=== PATIENT | male | born 1955 | race Caucasian/White ===

== ENCOUNTER → 2016-06-01 | Outpatient (CLI) | payer OTHER ==
[~2016-06-01] MED LIST: IOPAMIDOL (ISOVUE-300) 50 ML VIAL IV ONE
--- NOTE | 2016-06-01 17:10 | CT ---
CT Scan of the Abdomen and Pelvis (With Contrast) 1623 hours History: Lower abdominal pain. Technique: Axial computed tomographic images of the abdomen and pelvis were obtained, with the uneve ntful intravenous administration of 90 mL Isovue-300 contrast. No oral or rectal contrast, which conway its the study. Dose reduction techniques were utilized. CT Abdomen Findings Lung bases: Normal. Liver: Normal. Biliary system: No obstruction. Spleen: Normal. Pancreas: Normal. Adrenals: Normal. Kidneys: No obstruction or solid masses. Abdominal Aorta: No aneurysm. No bowel obstruction, ascites, or significant retroperitoneal lymphadenopathy. CT Pelvis Findings: Inflammatory thickening of the mid sigmoid colon extending for 7 cm, with temo lonic inflammatory changes, and a small amount of free fluid consistent with acute diverticulitis. N o drainable abscess or pneumoperitoneum. The appendix appears normal, without inflammatory changes. Impressions 1. Acute sigmoid diverticulitis, without bowel obstruction, drainable abscess, or pneumoperitoneum. 2. No CT evidence of appendicitis, abscess, or bowel obstruction. Findings and recommendations discussed with Emergency Department physician, Dr. Eladia Wall, at 16 40 hours on June 01, 2016. Final report concurs with initial preliminary interpretation.
== END ==
LOC: FIMAGING 14:29
PROVIDERS: ATTEND Emergency Medicine
DX: K57.92 Diverticulitis of intestine, part unspecified, without perforation or abscess without bleeding (principal)
CPT/HCPCS: Q9967

== ENCOUNTER → 2017-10-11 | Outpatient (CLI) | payer OTHER | LOC: BMCIMAGING 12:18 | PROVIDERS: ATTEND Orthopaedic Surgery Hand Surgery | DX: M25.532 Pain in left wrist (principal) ==

== ENCOUNTER 2018-05-16 04:10 | Observation (INO) | payer OTHER ==
[2018-05-16] MEDS ORDERED: ONDANSETRON 4 MG/2 ML VIAL ONE (04:21)
[2018-05-16] MEDS ORDERED: NS 1,000 ML IV ONE ×2 (04:22→04:38)
[2018-05-16] MEDS ORDERED: ONDANSETRON 4 MG/2 ML VIAL IVP ONE (04:22)
--- NOTE | 2018-05-16 04:23 | EDPHY ---
H & P Stated Complaint: vomiting and diarrhea with lower abd pain since 0100 Time Seen by Provider: 05/16/18 04:23 HPI/ROS: HPI CHIEF COMPLAINT: Abdominal pain, nausea, vomiting, diarrhea recently diagnosed with diverticulitis HISTORY OF PRESENT ILLNESS: Patient very pleasant 62-year-old male, he has a history of diverticulitis this would be his 3rd episode of this, he was recently treated with Cipro and Flagyl for the past 11 days and completed this course. He was then subsequently followed up with his primary care doctor last and placed on Augmentin as he continues to have pain. He now presents emergency room nausea vomiting and diarrhea and lower abdominal pain. He complains of left lower quadrant abdominal pain as well as right lower quadrant. Denies fever, denies chest pain, denies shortness of breath. No bloody stools, no hematemesis. Main complaint nausea, vomiting, diarrhea and lower abdominal pain. Past Medical History: Significant history for diverticulitis Past Surgical History: No recent surgical history Social History: Denies drugs alcohol tobacco. Family History: Noncontributory ROS REVIEW OF SYSTEMS: 10 Systems were reviewed and negative with the exception of the elements mentioned in the history of present illness. Exam Constitutional nontoxic triage nursing summary reviewed, vital signs reviewed , awake/alert. Vital signs stable Eyes normal conjunctivae and sclera, EOMI, PERRLA. HENT normal inspection, atraumatic, moist mucus membranes, no epistaxis, neck supple/ no meningismus, no raccoon eyes. Respiratory clear to auscultation bilaterally, normal breath sounds, no respiratory distress, no wheezing. Cardiovascular rate normal, regular rhythm, no murmur, no edema, distal pulses normal. Gastrointestinal mild tender palpation left lower quadrant and right lower quadrant, no peritoneal signs,, no rebound, no guarding, normal bowel sounds, no distension, no pulsatile mass. Genitourinary no CVA tenderness. Musculoskeletal no midline vertebral tenderness, full range of motion, no calf swelling, no tenderness of extremities, no meningismus, good pulses, neurovascularly intact. Skin pink, warm, & dry, no rash, skin atraumatic. Neurologic awake, alert and oriented x 3, AAOx3, moves all 4 extremities equally, motor intact, sensory intact, CN II-XII intact, normal cerebellar, normal vision, normal speech. Psychiatric normal mood/affect. Heme/Lymph/Immune no lymphadenopathy. Differential Diagnosis: Differential diagnosis includes but is not limited to and in no particular order: Bowel obstruction, appendicitis, gallbladder disease, diverticulitis, colitis, enteritis, perforated viscus, gastritis, GERD , esophagitis, urinary tract infection, pyelonephritis, kidney stones Medical Decision Making: Plan for this patient IV establishment IV fluid bolus , IV Zofran for nausea, basic blood work lactic acid, CT scan abdomen pelvis with IV contrast rule out acute diverticulitis or diverticulitis with perforation or abscess or complication of diverticulitis. Re-evaluation: CT scan abdomen pelvis with IV contrast no evidence of abscess or free air. Extensive diverticulosis in the sigmoid colon possible minimal stranding. Given the patient's high white count [id number], abdominal pain on exam, and recent course of antibiotics plan will be for hospital admission today for observation IV fluids and IV Invanz. If patient continues to do well with no significant pain no fever, no vomiting, white count decrease I believe he can be going home. Plan for admission for today for fluids, antibiotics and re-evaluation. No perforation or abscess was seen on the CT scan. Source: Patient - Personal History Current Tetanus/Diphtheria Vaccine: Yes Current Tetanus Diphtheria and Acellular Pertussis (TDAP): Yes - Medical/Surgical History Hx Asthma: No Hx Chronic Respiratory Disease: No Hx Diabetes: No Hx Cardiac Disease: No Hx Renal Disease: No Hx Cirrhosis: No Hx Alcoholism: No Hx HIV/AIDS: No Hx Splenectomy or Spleen Trauma: No Other PMH: Diverticulosis - Social History Smoking Status: Never smoked Constitutional: Initial Vital Signs Temperature (C) 36.3 C 05/16/18 04:11 Heart Rate 82 05/16/18 04:11 Respiratory Rate 16 05/16/18 04:11 Blood Pressure 130/80 H 05/16/18 04:11 O2 Sat (%) 96 05/16/18 04:11 O2 Delivery Mode Room Air Allergies/Adverse Reactions: No Known Allergies Allergy (Verified 05/16/18 04:17) Home Medications: Medication Instructions Recorded Amoxicillin/Clavulanate Pot 875 mg PO BID 05/16/18 [Augmentin 875 MG TAB (*)] Aspirin [Aspirin 81mg (*)] 81 mg PO DAILY 05/16/18 Herbals/Supplements -Info Only 1 ea PO DAILY 05/16/18 Losartan/Hctz 50/12.5 [Hyzaar 1 tab PO DAILY 05/16/18 50/12.5MG (*)] Metoprolol Tartrate [Lopressor 25 25 mg PO BID 05/16/18 mg (*)] Ondansetron Odt [Zofran Odt 4 mg 4 mg PO Q4-6PRN PRN 05/16/18 (*)] Vitamin B Complex [Vitamin B 2 each PO DAILY 05/16/18 Complex (OTC)] buPROPion XL [Wellbutrin Xl] 300 mg PO DAILY 05/16/18 Medical Decision Making - Diagnostics Imaging Results: Imaging Impressions Abdomen CT 05/16/18 04:27 Impression: 1. Diverticulosis coli especially in the sigmoid colon without evidence of diverticulitis. 2. No CT evidence of appendicitis, abscess or bowel obstruction. 3. 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 Findings and recommendations discussed with Emergency Department physician, Reynold Silva MD at 05:15 hour, 05/16/2018. Final report concurs with initial preliminary interpretation. - Data Points Laboratory Results: Laboratory Results 05/16/18 04:30 05/16/18 04:30 Medications Given: Dextrose/Sodium Chloride (D5w 1/2 Ns) 1,000 mls @ 100 mls/hr IV CONT ERNESTINA Stop: 11/12/18 06:14 Last Admin: 05/16/18 18:48 Dose: 1,000 mls Metoprolol Tartrate (Lopressor) 25 mg PO BID ERNESTINA Stop: 11/12/18 20:59 Last Admin: 05/16/18 20:09 Dose: 25 mg Ondansetron HCl (Zofran) 4 mg IVP Q4HRS PRN PRN Reason: Nausea/Vomiting, Can't Take PO Stop: 11/12/18 05:26 Last Admin: 05/16/18 13:38 Dose: 4 mg Pantoprazole Sodium (Protonix) 40 mg IVP BID ERNESTINA Stop: 11/12/18 14:59 Last Admin: 05/16/18 20:09 Dose: 40 mg Promethazine HCl (Phenergan) 12.5 mg IVP Q6HRS PRN PRN Reason: Nausea/Vomiting, Can't Take PO Stop: 11/12/18 13:52 Last Admin: 05/16/18 18:44 Dose: 12.5 mg Discontinued Medications Sodium Chloride (Ns) 1,000 mls @ 0 mls/hr IV EDNOW ONE; Wide Open PRN Reason: Protocol Stop: 05/16/18 04:23 Last Admin: 05/16/18 04:30 Dose: 1,000 mls Sodium Chloride (Ns) 1,000 mls @ 0 mls/hr IV ONCE ONE PRN Reason: Wide Open Stop: 05/16/18 04:39 Last Admin: 05/16/18 04:41 Dose: 1,000 mls Ertapenem 1 gm/ Sodium (Chloride) 100 mls @ 200 mls/hr IV EDNOW ONE PRN Reason: Protocol Stop: 05/16/18 05:46 Last Admin: 05/16/18 05:45 Dose: 100 mls Ondansetron HCl (Zofran) 4 mg IVP EDNOW ONE Stop: 05/16/18 04:23 Last Admin: 05/16/18 04:30 Dose: 4 mg Point of Care Test Results: Chemistry 05/16/18 04:37 POC Sodium 142 mEq/L mEq/L (135-145) POC Potassium 4.0 mEq/L mEq/L (3.3-5.0) POC Chloride 98 mEq/L mEq/L (97-110) POC BUN 19 mg/dL mg/dL (7-23) POC Creatinine 1.4 mg/dL H mg/dL (0.7-1.3) POC Glucose 154 mg/dL H mg/dL (70-100) ISTAT H&H 05/16/18 04:37 POC Hgb 19.7 gm/dL H gm/dL (13.7-17.5) POC Hct 58 % H % (40-51) Departure - Departure Disposition: [facility] Inpatient Acute Clinical Impression: Diverticulitis Abdominal pain Qualifiers: Abdominal location: generalized Qualified Code(s): R10.84 - Generalized abdominal pain Condition: Fair
[2018-05-16] MEDS ORDERED: IOPAMIDOL (ISOVUE-300) 100 ML BTL ONE (04:39)
[2018-05-16 04:44] LABS: PLATELET COUNT 651 10^3/uL (150-400)
[2018-05-16 04:52] LABS: INR 1.03 (0.83-1.16); PROTIME(PATIENT) 13.7 SEC (12.0-15.0)
[2018-05-16] MEDS ORDERED: ERTAPENEM 1 GM in NS 100 ML IV ONE (05:17)
[2018-05-16] MEDS ORDERED: ONDANSETRON DISINTEGRATING 4 MG TAB PO PRN (05:27)
[2018-05-16] MEDS ORDERED: oxyCODONE IR 5 MG TAB PO PRN (05:27)
[2018-05-16] MEDS ORDERED: ACETAMINOPHEN 325 MG TAB PO PRN (05:27)
--- NOTE | 2018-05-16 06:05 | PDGENHP ---
History and Physical - Chief Complaint Abdominal pain - History of Present Illness 62 yo M w/ hx of HTN and recurrent diverticulitis presents with abdominal pain, nausea, and vomiting. The patient has been dealing with a bout of diverticulitis for the last 10 days. He was prescribed a course of Cipro/Flagyl by his PCP with moderate improvement. His PCP did not feel he was fully recovered, however, so he was started on Augmentin yesterday. Later the same day he began to experience nausea and vomiting. It is for this reason he came in to the ED for evaluation. In the ED his CT scan is reassuring with minimal inflammation and no complications of diverticulitis. His WBC is elevated at 24k and he has a mildly elevated serum creatinine. He is being admitted for observation. Case discussed with ED physician Dr. Madsen; records reviewed and summarized above. History Information - Allergies/Home Medication List Allergies/Adverse Reactions: No Known Allergies Allergy (Verified 05/16/18 04:17) Home Medications: Amoxicillin/Clavulanate Pot 05/16/18 [Last Taken Unknown] Aspirin 81mg (*) 05/16/18 [Last Taken Unknown] Bupropion HCl 05/16/18 [Last Taken Unknown] Coenzyme Q-10 05/16/18 [Last Taken Unknown] Losartan-Hctz 100-12.5 mg Tab 05/16/18 [Last Taken Unknown] Metoprolol ER-Hctz 100-12.5 mg 05/16/18 [Last Taken Unknown] I have personally reviewed and updated: family history, medical history - Past Medical History hypertension - Surgical History Additional surgical history: Tendon release L wrist - Family History Positive for: cancer - Social History Smoking Status: Never smoked Review of Systems Review of Systems: ROS: 10pt was reviewed & negative except for what was stated in HPI & below Physical Exam Physical Exam: Temp Pulse Resp BP Pulse Ox 36.3 C 82 16 130/80 H 96 05/16/18 04:11 05/16/18 04:11 05/16/18 04:11 05/16/18 04:11 05/16/18 04:11 Constitutional: obese, uncomfortable Eyes: PERRL, EOMI Ears, Nose, Mouth, Throat: moist mucous membranes, no oral mucosal ulcers Cardiovascular: regular rate and rhythym, no murmur, rub, or gallop Respiratory: no respiratory distress, clear to auscultation Gastrointestinal: tenderness (LLQ, RLQ), No guarding, No rebound, No distension Skin: warm, normal color Musculoskeletal: full muscle strength, no muscle tenderness Neurologic: AAOx3, CN II-XII Intact Psychiatric: interacting appropriately, not anxious Lab Data & Imaging Review 05/16/18 04:30 05/16/18 04:30 WBC 24.42 10^3/uL (3.80-9.50) H 05/16/18 04:30 RBC 6.13 10^6/uL (4.40-6.38) 05/16/18 04:30 Hgb 18.9 g/dL (13.7-17.5) H 05/16/18 04:30 POC Hgb 19.7 gm/dL (13.7-17.5) H 05/16/18 04:37 Hct 53.3 % (40.0-51.0) H 05/16/18 04:30 POC Hct 58 % (40-51) H 05/16/18 04:37 MCV 86.9 fL (81.5-99.8) 05/16/18 04:30 MCH 30.8 pg (27.9-34.1) 05/16/18 04:30 MCHC 35.5 g/dL (32.4-36.7) 05/16/18 04:30 RDW 16.5 % (11.5-15.2) H 05/16/18 04:30 Plt Count 651 10^3/uL (150-400) H 05/16/18 04:30 MPV 8.7 fL (8.7-11.7) 05/16/18 04:30 Neut % (Auto) 85.8 % (39.3-74.2) H 05/16/18 04:30 Lymph % (Auto) 5.1 % (15.0-45.0) L 05/16/18 04:30 [place] % (Auto) 7.7 % (4.5-13.0) 05/16/18 04:30 Eos % (Auto) 0.4 % (0.6-7.6) L 05/16/18 04:30 Baso % (Auto) 0.2 % (0.3-1.7) L 05/16/18 04:30 Nucleat RBC Rel Count 0.0 % (0.0-0.2) 05/16/18 04:30 Absolute Neuts (auto) 20.95 10^3/uL (1.70-6.50) H 05/16/18 04:30 Absolute Lymphs (auto) 1.25 10^3/uL (1.00-3.00) 05/16/18 04:30 Absolute Monos (auto) 1.88 10^3/uL (0.30-0.80) H 05/16/18 04:30 Absolute Eos (auto) 0.10 10^3/uL (0.03-0.40) 05/16/18 04:30 Absolute Basos (auto) 0.05 10^3/uL (0.02-0.10) 05/16/18 04:30 Absolute Nucleated RBC 0.00 10^3/uL (0-0.01) 05/16/18 04:30 Immature Gran % 0.8 % (0.0-1.1) 05/16/18 04:30 Immature Gran # 0.20 10^3/uL (0.00-0.10) H 05/16/18 04:30 RBC/WBC/PLT Morphology TNP 05/16/18 04:30 Platelet Estimate TNP 05/16/18 04:30 PT 13.7 SEC (12.0-15.0) 05/16/18 04:30 INR 1.03 (0.83-1.16) 05/16/18 04:30 APTT 31.8 SEC (23.0-38.0) 05/16/18 04:30 VBG Lactic Acid 1.5 mmol/L (0.7-2.1) 05/16/18 04:30 POC Sodium 142 mEq/L (135-145) 05/16/18 04:37 Sodium 138 mEq/L (135-145) 05/16/18 04:30 POC Potassium 4.0 mEq/L (3.3-5.0) 05/16/18 04:37 Potassium 4.8 mEq/L (3.5-5.2) 05/16/18 04:30 POC Chloride 98 mEq/L (97-110) 05/16/18 04:37 Chloride 100 mEq/L (97-110) 05/16/18 04:30 Carbon Dioxide 29 mEq/l (22-31) 05/16/18 04:30 Anion Gap 9 mEq/L (6-14) 05/16/18 04:30 POC BUN 19 mg/dL (7-23) 05/16/18 04:37 BUN 20 mg/dL (7-23) 05/16/18 04:30 Creatinine 1.3 mg/dL (0.7-1.3) 05/16/18 04:30 POC Creatinine 1.4 mg/dL (0.7-1.3) H 05/16/18 04:37 Estimated GFR 56 05/16/18 04:30 Glucose 154 mg/dL (70-100) H 05/16/18 04:30 POC Glucose 154 mg/dL (70-100) H 05/16/18 04:37 Calcium 9.7 mg/dL (8.5-10.4) 05/16/18 04:30 Total Bilirubin 0.5 mg/dL (0.1-1.4) 05/16/18 04:30 Conjugated Bilirubin 0.3 mg/dL (0.0-0.5) 05/16/18 04:30 Unconjugated Bilirubin 0.2 mg/dL (0.0-1.1) 05/16/18 04:30 AST 39 IU/L (17-59) 05/16/18 04:30 ALT 74 IU/L (21-72) H 05/16/18 04:30 Alkaline Phosphatase 79 IU/L (38-126) 05/16/18 04:30 Total Protein 7.2 g/dL (6.3-8.2) 05/16/18 04:30 Albumin 4.3 g/dL (3.5-5.0) 05/16/18 04:30 Lipase 70 IU/L (23-300) 05/16/18 04:30 Imaging Review: SIGMOID DIVERTICULOSIS NO DIVERTICULITIS NORMAL APPENDIX NO BOWEL OBSTRUCTION NO ABSCESS OR PNEUMOPERITONEUM DISCUSSED WITH DR GOODMAN AT 0515 Assessment & Plan Assessment: 62 yo M w/ hx HTN presents with diverticulitis. Plan: 1. Diverticulitis - This appears mostly resolved on CT scan with no complication noted (personally reviewed/interpreted). However, he continues to have elevated WBC, is tolerating little PO, and appears dehydrated. He has been treated with Cipro/Flagyl x 10 days. - Will admit for observation - Invanz IV 1g q24h - NPO, mIVF - Oxycodone PRN 2. Nausea, vomiting - This developed on the evening prior to admission. It is unclear if this is a sign of worsening/new GI process or a reaction to starting Augmentin. - D/C Augmentin - Will check GI PCR - Anti-emetics PRN - mIVF 3. HTN - Continue home medications pending reconciliation 4. Leukocytosis - WBC 24k on admission; this could be reactive from vomiting; however, difficult to rule out ongoing infectious process. - Invanz as above - GI PCR ordered 5. Polycythemia - Possibly due to dehydration; IVF and repeat CBC. Diet - NPO, mIVF Code - Full Ppx - SCDs Dispo - Admit under observation status
[2018-05-16] MEDS: D5W 1/2 NS 1,000 ML IV SCH ×2 (08:45→18:48)
--- NOTE | 2018-05-16 09:40 | ASMTCMCOM ---
CM Note CM Note Notes: Chart reviewed for discharge planning purposes. 71 year old male admitted via ED after course of antibiotics to treat diverticulitis. He comes in with pain, nausea and vomiting. No current needs identified. CM available should needs arise. Plan: Likely to discharge home independent when medically cleared for discharge. Date Signed: 05/16/2018 09:39 AM Electronically Signed By:Maria Del Carmen Barr RN
[2018-05-16] MEDS: ONDANSETRON 4 MG/2 ML VIAL IVP PRN ×2 (09:48→13:38)
[2018-05-16] MEDS ORDERED: PROMETHAZINE HCL 25 MG/ML INJ IVP PRN (13:53)
--- NOTE | 2018-05-16 14:59 | HOSPPROG ---
Hospitalist Progress Note Assessment/Plan: 62 yo M w/ hx HTN presents with diverticulitis. First encounter, chart reviewed. Plan: 1. Diverticulitis - This appears mostly resolved on CT scan with no complication noted - However, he continues to have elevated WBC, is tolerating little PO, and appears dehydrated. - He has been treated with Cipro/Flagyl x 10 days. and 1 dose Augmentin - will give Invanz IV 1g q24h -3 episode in 2 years, requiring multiple rounds of abx -consider surgery consult if not improving 2. Nausea, vomiting - This developed on the evening prior to admission. - etiol unclear - It is unclear if this is a sign of worsening/new GI process or a reaction to starting Augmentin. - GI PCR negative - Anti-emetics PRN - mIVF 3. HTN - stable -follow -hold home meds 4. Leukocytosis - WBC 24k on admission; -pt baseline wbc mildly elevated, chronic -follow efrain Mercado -this could be reactive from vomiting; -difficult to rule out ongoing infectious process. - Invanz as above 5. Polycythemia - Possibly due to dehydration; - IVF and repeat CBC. 6. Reflux -add protonix -order EKG Diet - regular Code - Full Ppx - SCDs Dispo - Admit under observation status spent >35 minutes bedside Subjective: Still nauseous. Pain 4/10. Thirsty. No new symptoms. Objective: Vital Signs Temp Pulse Resp BP Pulse Ox 36.5 C 113 H 15 120/77 92 05/16/18 11:33 05/16/18 11:33 05/16/18 11:33 05/16/18 11:33 05/16/18 11:33 Microbiology 05/16/18 07:05 Gastrointestinal Tract Panel (PCR) - Final Stool No Organism Detected By Pcr 05/15/18 05/16/18 05/17/18 05:59 05:59 05:59 Intake Total 2150 Balance 2150 PT 13.7 SEC (12.0-15.0) 05/16/18 04:30 INR 1.03 (0.83-1.16) 05/16/18 04:30 - Physical Exam Constitutional: appears nourished, obese, uncomfortable Eyes: PERRL, anicteric sclera, EOMI Ears, Nose, Mouth, Throat: moist mucous membranes, hearing normal, ears appear normal Cardiovascular: regular rate and rhythym, No JVD, No edema Respiratory: no respiratory distress, no rales or rhonchi, reduced air movement Gastrointestinal: tenderness, distension, No ascites, No guarding Skin: warm, normal color, No mottled Musculoskeletal: normal joint ROM, no joint effusions, generalized weakness Neurologic: AAOx3 Psychiatric: interacting appropriately, not anxious, not encephalopathic, thought process linear ICD10 Worksheet Patient Problems: Problems Problem Status Onset Abdominal pain Acute Diverticulitis Acute
[2018-05-16] MEDS: PANTOPRAZOLE SODIUM 40 MG VIAL IVP SCH ×2 (15:26→20:09)
[2018-05-16 16:30] LABS: CREATINE KINASE 52 IU/L (0-224)
[2018-05-16] MEDS: METOPROLOL TARTRATE 25 MG TAB PO SCH (20:09)
[2018-05-16] MEDS: ONDANSETRON DISINTEGRATING 4 MG TAB PO PRN (22:41)
[2018-05-17] MEDS: ONDANSETRON DISINTEGRATING 4 MG TAB PO PRN (04:58)
[2018-05-17] MEDS: D5W 1/2 NS 1,000 ML IV SCH (06:27)
[2018-05-17] MEDS ORDERED: VITAMIN B COMPLEX 1 EA CAP/TAB PO SCH (09:00)
[2018-05-17] MEDS ORDERED: buPROPion XL 150 MG TAB PO SCH (09:00)
[2018-05-17] MEDS ORDERED: ASPIRIN 81 MG CHEWABLE TAB PO SCH (09:00)
[2018-05-17] MEDS ORDERED: ERTAPENEM 1 GM in NS 100 ML IV SCH (09:00)
[2018-05-17] MEDS: PANTOPRAZOLE SODIUM 40 MG VIAL IVP SCH (09:14)
[2018-05-17] MEDS: METOPROLOL TARTRATE 25 MG TAB PO SCH (09:15)
--- NOTE | 2018-05-17 09:43 | CPEKG ---
Test Reason : OPEN Blood Pressure : / mmHG Vent. Rate : 116 BPM Atrial Rate : 116 BPM P-R Int : 161 ms QRS Dur : 081 ms QT Int : 290 ms P-R-T Axes : 068 050 002 degrees QTc Int : 403 ms Sinus tachycardia Low voltage, precordial leads Borderline T wave abnormalities Confirmed by Panfilo Cook ([id number]) on 05/17/2018 9:42:58 AM Referred By: Confirmed By:Panfilo Cook
[2018-05-17] MEDS ORDERED: AMOXICILLIN/CLAVULANATE POT 875/125 MG TAB PO SCH (10:15)
[2018-05-17 11:49] VITALS: BP 106/67
--- NOTE | 2018-05-17 13:41 | GDS ---
DISCHARGE DIAGNOSES: 1. Nausea and vomiting. 2. Viral gastroenteritis. 3. Recent diverticulitis. 4. History of hypertension. 5. Leukocytosis. 6. Polycythemia. 7. Acid reflux. CONSULTATIONS: Dr. Rodriguez. STUDIES AND PROCEDURES DONE: CT of the abdomen. PHYSICAL EXAM: GENERAL: The patient is alert. VITAL SIGNS: Afebrile at 36.9 , pulse 75, respiratory rate 16, blood pressure is 106/76. He is saturating 92 % on room air. I have seen and evaluated the patient on the day of discharge. HOSPITAL COURSE: 1. The patient is a 62-year-old male who presented to the emergency room with complaints of nausea and vomiting. He was evaluated and diagnosed with nausea and vomiting. This is secondary to likely a viral gastroenteritis. The patient has responded well to IV fluids and hydration. He is tolerating some oral intake. His GI PCR has been negative. He is responding to antiemetics and will continue these in the outpatient setting. 2. Recent diverticulitis. He will continue on Augmentin at the time of disposition as previously prescribed. He did receive IV Invanz during this hospitalization and has already completed a 10-day course of ciprofloxacin and Flagyl. He did receive a consultation from Dr. Rodriguez of surgery, who has recommended that he have surgical intervention when this acute inflammation resolves. This is his 3rd bout of diverticulitis in the last two years. 3. History of hypertension. His home antihypertensive has been discontinued at the time of disposition as he has low blood pressures. 4. Dehydration. This is improved with IV fluids. 5. Leukocytosis. The patient had an acute reactive leukocytosis at the time of admission. He does have signs of chronic leukocytosis for which he follows with Dr. Mercado outside the hospital. It does appear that he has returned to his baseline, and will continue to see Dr. Mercado. 6. Polycythemia is likely secondary to dehydration. This has resolved with IV fluid hydration. No further workup is indicated at this time. 7. Acid reflux. This is in the setting of viral gastroenteritis as well as diverticulitis. He is responding well to Protonix. DISPOSITION: The patient will be discharged home independently. FOLLOWUP: Will be with his primary care physician as well as Dr. Osbaldo Rodriguez. DISCHARGE MEDICATIONS: Please refer to EMR form. I have discontinued the patient's previously prescribed Hyzaar secondary to his low blood pressure and dehydration, and I have continued his previously prescribed home medications, including his recent prescription for Augmentin. He will follow with Dr. Loy Sylvester as well as Dr. Osbaldo Rodriguez outside the hospital. I have spent greater than 35 minutes in the care, coordination, and management of this patient's disposition. /[id number]/MODL MTDD
--- NOTE | 2018-05-17 19:33 | GCON ---
DATE OF CONSULTATION: 05/17/2018 Patient is a 62-year-old male who is admitted for recurrent diverticulitis. He has had 3 bouts of di verticulitis now which have all responded to antibiotics. However, this latest bout has been somewha t slow to respond. At the present time, a CT scan reveals no active complications or ongoing inflamm ation. He is having adequate GI function and starting to eat and is afebrile. His pain has resolved . I was consulted for advice on surgical options. ALLERGIES: None. MEDICATIONS: Augmentin, aspirin, bupropion, losartan, metoprolol, hydrochlorothiazide. PAST SURGICAL HISTORY: Includes a hernia repair and a tendon release of his wrist. PAST MEDICAL HISTORY: Includes hypertension. FAMILY HISTORY: Positive for malignancy. SOCIAL HISTORY: Reveals he is a non smoker. REVIEW OF SYSTEMS: Negative except as related to the HPI on a full 10-point review. Specifically, deandre monroe does not smoke. PHYSICAL EXAM: He is an alert, somewhat overweight 62-year-old male in no acute distress. HEAD and NECK: Reveals no icterus or adenopathy. CHEST: Clear. CARDIAC: Regular rhythm. ABDOMEN: Soft, not particularly tender. Active bowel sounds. No hernias. GENITALIA: Normal. EXTREMITIES: Full range of motion. Full pulses. NEUROLOGIC: Physiologic and symmetric with intact cranial nerves. IMPRESSION: Recurrent diverticulitis. He has now had 3 bouts of antibiotic treated diverticulitis. CT scan shows an extensive sigmoid diverticulosis with relatively large diverticula. Based on his a ge and his number of episodes, I would recommend him to consider sigmoid colectomy to avoid future co mplication. Risks and options have been fully discussed including the fact that he could just contin ue to treat episodes with antibiotics rather than surgery. He fully understands, accepts the risks a nd is thinking about his options. I plan to see him to follow up as an outpatient if he is intereste d in surgical intervention. /[id number]/MODL
== END 2018-05-17 15:12 | disposition home or self-care (01) ==
LOC: F3E 08:29
PROVIDERS: ADMIT Student in an Organized Health Care Education/Training Program; ATTEND Internal Medicine
DX: A08.4 Viral intestinal infection, unspecified (principal); E86.0 Dehydration; D72.829 Elevated white blood cell count, unspecified; K57.30 Diverticulosis of large intestine without perforation or abscess without bleeding; I10 Essential (primary) hypertension; K21.9 Gastro-esophageal reflux disease without esophagitis; D75.1 Secondary polycythemia; M48.061 Spinal stenosis, lumbar region without neurogenic claudication; M48.04 Spinal stenosis, thoracic region; Z79.2 Long term (current) use of antibiotics; Z79.82 Long term (current) use of aspirin; Z87.19 Personal history of other diseases of the digestive system
CPT/HCPCS: 74177; 93005; 96361; 96365; 96375; 96376; 99285; G0378; 82435-PO; 82565-PO; 82947-PO; 84132-PO; 84295-PO; 84520-PO; 85014-PO; J1335; J2405; J2550; Q9967